=== PATIENT | male | born 1990 | race Caucasian/White ===

== ENCOUNTER 2018-07-11 08:21 | Emergency (ER) | payer BC ==
[~2018-07-11] VITALS: Ht 172.7 cm; Wt 73.7 kg
[2018-07-11 08:25] VITALS: TEMP 36.7; O2SAT 98; Ht 172.7 cm; Wt 73.7 kg
[2018-07-11] MEDS ORDERED: ASPIRIN 81 MG CHEW PO STA (08:29)
--- NOTE | 2018-07-11 08:30 | EMERGENCY ROOM VISIT NOTE ---
History Report prepared by Alexander: Payal Corey Under the Supervision of: Dr. Presley Aparicio M.D. First contact with patient: 08:26 Chief Complaint: CHEST PAIN Stated Complaint: CHEST PAIN History of Present Illness The patient is a 27 year old male who presents to the Emergency Room with complaints of persistent chest pain beginning at 2200 last night. He states the pain is in the center of chest and describes it as sharp. He rates his pain as a 5/10 in severity. No radiation of the pain. Pt denies any cough, hemoptysis , abdominal pain, recent trauma, drug use such as cocaine, recent long travel, exogenous hormone usage, recent surgeries/trauma, periods of immobility, or history of blood clots. Source of History: patient Onset: 2200 last night Position: chest (center) Symptom Intensity: 5/10 in severity Quality: sharp Timing: other (persistent) Associated Symptoms: No cough, No abdominal pain Note: Negative recent trauma, drug use such as cocaine, recent long travel. Review of Systems See HPI for pertinent positives and negatives. A total of ten systems were reviewed and were otherwise negative. Past Medical & Surgical Medical Problems: (1) No significant past medical history Family History No pertinent family history Social History Smoking Status: Never Smoker Current/Historical Medications No Active Prescriptions or Reported Meds Allergies Coded Allergies: Penicillins (Unverified Adverse Reaction, Intermediate, HIVES, 07/11/18) Physical Exam Vital Signs Date Time Temp Pulse Resp B/P (MAP) Pulse Ox O2 Delivery O2 Flow Rate FiO2 07/11/18 08:59 59 18 154/85 99 Room Air 07/11/18 08:33 57 07/11/18 08:25 36.7 61 18 148/80 95 Room Air 07/11/18 08:25 98 Room Air 07/11/18 08:25 98 Room Air Physical Exam Physical Exam GENERAL: He is oriented to person, place, and time. He appears well-developed and well-nourished. He does not appear distressed. HENT: Exam performed. Head: Normocephalic and atraumatic. Right Ear: External ear normal. No mastoid tenderness. Left Ear: External ear normal. No mastoid tenderness. Mouth/Throat: The oropharynx is clear and moist. No trismus in the jaw. No dental abscesses or uvula swelling. No oropharyngeal exudate or tonsillar abscesses. EYES: Conjunctivae and EOM are normal. Pupils are equal, round, and reactive to light. Right eye exhibits no discharge. Left eye exhibits no discharge. No scleral icterus. NECK: Normal range of motion. Neck supple. No JVD present. No spinous process tenderness present. No carotid bruit present. No rigidity. No tracheal deviation and normal range of motion present. No Brudzinski's sign and no Kernig 's sign noted. CV: Normal rate, regular rhythm, normal heart sounds and intact distal pulses. There is no peripheral edema. Palpable radial pulses bue. PULM/CHEST: Effort normal and breath sounds normal. No respiratory distress. No stridor. He has no wheezes. He has no rales. Chest Wall: He exhibits no tenderness. ABD: The abdomen is soft. Bowel sounds are normal. He has no distension. No mass is present. There is no tenderness. There is no rebound, no guarding, no Salmon's sign and no tenderness at McBurney's point. Rovsig negative. MUSC/SKEL: Normal range of motion. There is no peripheral edema, tenderness or deformity. Palpable DP and PT pulses bilateral lower extremity's. LYMPH: No cervical adenopathy. NEURO: He is alert and oriented to person, place, and time. He has normal strength. No cranial nerve deficit or sensory deficit. Coordination and gait normal. GCS eye subscore is 4. GCS verbal subscore is 5. GCS motor subscore is 6. Cerebellar tests wnl. SKIN: Skin is warm and dry. He is not diaphoretic. PSYCH: He has a normal mood and affect. Behavior is normal. Judgment and thought content normal. Medical Decision & Procedures ER Provider Diagnostic Interpretation: Radiology results as stated below per my review and radiologist interpretation: CHEST 2 VIEWS ROUTINE CLINICAL HISTORY: cp dyspnea COMPARISON STUDY: 12/26/2013 FINDINGS: The bones soft tissues and hemidiaphragms are normal. The cardiomediastinal silhouette is normal. The lungs are clear. The pulmonary vasculature is normal. IMPRESSION: Negative chest. The above report was generated using voice recognition software. It may contain grammatical, syntax or spelling errors. Electronically signed by: Herminio Begum M.D. 07/11/2018 8:53 AM Medications Administered Medications (Trade) Dose Ordered Sig/Margi Route Start Time Stop Time Status Last Admin Dose Admin Aspirin (Aspirin Chew) 324 mg NOW STAT PO 07/11/18 08:29 07/11/18 08:30 DC 07/11/18 08:38 324 MG ECG Per My Interpretation Indication: chest pain Rate (beats per minute): 60 Rhythm: sinus rhythm Findings: other (AL, QRS and QTC intervals wnl, no ST elevation or depression) ED Course 08: The patient was evaluated in room A2. A complete history and physical exam was performed. 0910: Vital signs stable. EKG and imaging within normal limits. No risk factors for PE, Wells score low PERC negative. DISCHARGE - Plan of care discussed with patient and questions answered. The patient was given both verbal and printed discharge instructions. The patient verbalized understanding and ability to comply. The patient is to seek outpatient follow up as noted in the discharge instructions. The patient verbalized understanding and ability to comply. The patient is discharged in stable condition. The patient was instructed to return for worsening symptoms. Medical Decision Vital signs stable. EKG and imaging within normal limits. No risk factors for PE, Wells score low PERC negative. DISCHARGE - Plan of care discussed with patient and questions answered. The patient was given both verbal and printed discharge instructions. The patient verbalized understanding and ability to comply. The patient is to seek outpatient follow up as noted in the discharge instructions. The patient verbalized understanding and ability to comply. The patient is discharged in stable condition. The patient was instructed to return for worsening symptoms. Medication Reconcilliation Current Medication List: was personally reviewed by me Blood Pressure Screening Patient's blood pressure: Elevated blood pressure Blood pressure disposition: Elevated BP felt to be situational Impression Primary Impression: Chest pain Scribe Attestation The scribe's documentation has been prepared under my direction and personally reviewed by me in its entirety. I confirm that the note above accurately reflects all work, treatment, procedures, and medical decision making performed by me. The chart was completed utilizing [employer] Speech voice recognition software. Grammatical errors, random word insertions, pronoun errors, and incomplete sentences are an occasional consequence of this system due to software limitations, ambient noise, and hardware issues. Any formal questions or concerns about the content, text, or information contained within the body of this dictation should be directly addressed to the physician for clarification. Departure Information Dispostion Home / Self-Care Prescriptions No Active Prescriptions or Reported Meds Referrals No Doctor, Assigned (PCP) Forms HOME CARE DOCUMENTATION FORM, IMPORTANT VISIT INFORMATION Patient Instructions [facility] Problem Qualifiers Primary Impression: Chest pain Chest pain type: unspecified Qualified Codes: R07.9 - Chest pain, unspecified
--- NOTE | 2018-07-11 08:55 | DIAGNOSTIC IMAGING REPORT ---
CHEST 2 VIEWS ROUTINE CLINICAL HISTORY: cp dyspnea COMPARISON STUDY: 12/26/2013 FINDINGS: The bones soft tissues and hemidiaphragms are normal. The cardiomediastinal silhouette is normal. The lungs are clear. The pulmonary vasculature is normal. IMPRESSION: Negative chest. The above report was generated using voice recognition software. It may contain grammatical, syntax or spelling errors. Electronically signed by: Herminio Begum M.D. 07/11/2018 8:53 AM Dictated Date/Time: 07/11/2018 8:53 AM
[2018-07-11 08:59] VITALS: BP 154/85; PULSE 59; O2SAT 99
== END 2018-07-11 09:19 | disposition home or self-care (01) ==
LOC: C.EDB 08:22 → C.EDA 09:19
DX: R07.9 Chest pain, unspecified (principal); Z88.0 Allergy status to penicillin